=== PATIENT | male | born 1965 | race Caucasian/White ===

== ENCOUNTER 2017-01-18 11:33 | Emergency (ER) | payer BC ==
[~2017-01-18] VITALS: Ht 190.5 cm; Wt 145.5 kg
[~2017-01-18 11:33] MED LIST: BENACAR; IBUPROFEN800 MG PO
[2017-01-18 11:36] VITALS: TEMP 97.7
[2017-01-18] MEDS ORDERED: GLUCOPHAGE500 MG/TAB PO (11:41)
[2017-01-18] MEDS ORDERED: NORVASC 5MG5 MG/TAB PO (11:42)
[2017-01-18] MEDS ORDERED: DIOVAN 40MG40 MG (11:42)
[2017-01-18] MEDS ORDERED: ALDACTONE 25MG25 M1 PO (11:43)
[2017-01-18] MEDS ORDERED: MOBIC15 MG PO (11:43)
[2017-01-18] MEDS ORDERED: LASIX 20MG TABL20 MG (11:43)
[2017-01-18 12:35] LABS: BASO % 0.3 % (0.0-2.0); EOS # 0.1 (0.0-0.7); EOS % 0.6 % (0-4.0); GRAN # 10.3 (1.4-6.5); GRAN % 82.2 % (42.2-75.2); HEMATOCRIT 42.8 % (42.0-52.0); HEMOGLOBIN 14.5 g/dl (13.5-18.0); LYMPH # 1.4 (1.2-3.4); LYMPH % 11.3 % (20.0-51.0); MEAN CELL VOLUME 86 fl (80.0-100.0); MEAN CORPUSCULAR HEMOGLOBIN 29 pg (27.0-31.0); MEAN CORPUSCULAR HGB CONC 34 g/dl (33.0-37.0); MONO # 0.7 (0.1-0.6); MONO % 5.3 % (1.7-9.3); PLATELET COUNT 241 K/mm3 (130-400); RED BLOOD COUNT 4.98 M/mm3 (4.20-5.60); REDCELL DISTRIBUTION WIDTH-CV 13.1 % (11.5-14.5); WHITE BLOOD COUNT 12.5 K/mm3 (4.8-10.8)
[2017-01-18 12:58] LABS: ADJUSTED CALCIUM 8.7 mg/dL (8.4-10.2); ALANINE AMINOTRANSFERASE 23 U/L (21-72); ALBUMIN 4.1 gm/dL (3.5-5.0); ALKALINE PHOSPHATASE 69 U/L (50-136); ANION GAP 10 mmol/L (7-16); BILIRUBIN,TOTAL 0.6 mg/dL (0.0-1.0); BLOOD UREA NITROGEN 18 mg/dL (9-20); CALCIUM 8.8 mg/dL (8.4-10.2); CARBON DIOXIDE 25 mmol/L (22-30); CHLORIDE 101 mmol/L (98-107); CREATININE, serum 0.87 mg/dL (0.66-1.25); GLUCOSE 152 mg/dL (74-106); POTASSIUM 4.2 mmol/L (3.4-5.0); SODIUM 136 mmol/L (137-145)
[2017-01-18] MEDS ORDERED: FLEXERIL 1010 MG/TAB PO (15:23)
[2017-01-18 16:59] LABS: TROPONIN-I < 0.012 ng/mL (0.000-0.034)
[2017-01-18 17:08] VITALS: BP 147/74; PULSE 70
== END 2017-01-18 17:13 | disposition home or self-care (01) ==
LOC: COL.ER 11:33
PROVIDERS: Emergency Medicine
DX: M62.838 Other muscle spasm (principal); R55 Syncope and collapse; E11.9 Type 2 diabetes mellitus without complications; I10 Essential (primary) hypertension; Z79.84 Long term (current) use of oral hypoglycemic drugs; Z90.49 Acquired absence of other specified parts of digestive tract
CPT/HCPCS: J1885; J2060; J7030

== ENCOUNTER → 2017-02-01 | Outpatient (CLI) | payer BC ==
[~2017-02-01] MED LIST changes: +ALDACTONE 25MG25 M1 PO; +DIOVAN 40MG40 MG; +FLEXERIL 1010 MG/TAB PO; +GLUCOPHAGE500 MG/TAB PO; +LASIX 20MG TABL20 MG; +MOBIC15 MG PO; +NORVASC 5MG5 MG/TAB PO
== END ==
LOC: COL.VAS 08:45
DX: R03.0 Elevated blood-pressure reading, without diagnosis of hypertension (principal); R55 Syncope and collapse

== ENCOUNTER → 2023-06-20 | Outpatient (CLI) | payer BC | LOC: COL.RAD 08:19 | DX: M79.662 Pain in left lower leg (principal) ==